=== PATIENT | female | born 1955 | race Caucasian/White ===

== ENCOUNTER 2016-09-12 07:00 | Inpatient (IN) | payer OTHER ==
[~2016-09-12] VITALS: Ht 155 cm; Wt 93.0 kg
[2016-10-11 05:39] LABS: HCT 34.1 % (37.0-47.0); HGB 10.7 g/dl (12.5-16.0); MCH 29.6 pg (25.0-31.0); MCHC 31.4 g/dL (32.0-36.0); MCV 94.5 fL (78.0-100.0); MPV 13.7 fL (6.0-9.5); RBC 3.61 M/uL (4.20-5.40); RDW 15.4 % (11.5-14.0); WBC 13.1 K/uL (4.0-10.5)
[2016-10-11 06:02] LABS: CREATININE 0.8 mg/dL (0.5-1.0); POTASSIUM 4.3 mmol/L (3.5-5.1)
[2016-10-12 05:17] LABS: HCT 31.7 % (37.0-47.0); MCH 29.9 pg (25.0-31.0); MCHC 31.5 g/dL (32.0-36.0); MCV 94.9 fL (78.0-100.0); MPV 13.8 fL (6.0-9.5); RBC 3.34 M/uL (4.20-5.40); RDW 15.3 % (11.5-14.0); WBC 11.1 K/uL (4.0-10.5)
[2016-10-12 05:37] LABS: CREATININE 0.8 mg/dL (0.5-1.0); POTASSIUM 4.3 mmol/L (3.5-5.1)
[2016-10-13 06:36] LABS: HGB 9.6 g/dl (12.5-16.0); MCH 29.4 pg (25.0-31.0); MCV 95.1 fL (78.0-100.0); MPV 14.3 fL (6.0-9.5); RBC 3.26 M/uL (4.20-5.40); RDW 15.2 % (11.5-14.0); WBC 12.3 K/uL (4.0-10.5)
[2016-10-13 07:04] LABS: CREATININE 0.6 mg/dL (0.5-1.0)
[2016-10-13] MEDS ORDERED: PERCOCET 5/3251 TAB PO (13:53)
[2016-10-13] MEDS ORDERED: XARELTO10 MG PO (13:54)
[2016-10-13] MEDS ORDERED: VITAMIN D5000 UNIT PO (13:54)
[2016-10-13] MEDS ORDERED: MICRO-K10 MEQ PO (13:55)
[2016-10-13] MEDS ORDERED: CELEXA 40MG TAB40 MG PO (13:55)
[2016-10-13] MEDS ORDERED: LASIX40 MG PO (13:55)
[2016-10-13] MEDS ORDERED: PRAVASTATIN SOD20 MG PO (13:56)
[2016-10-13] MEDS ORDERED: FIBER THERAPY PO (13:56)
[2016-10-13] MEDS ORDERED: NIACIN ER500 MG PO (13:56)
[2016-10-13] MEDS ORDERED: PROTONIX20 MG PO (13:56)
--- NOTE | 2016-10-13 14:45 | NUR ---
REVIEWED DISCHARGE INSTRUCTIONS, MEDICATIONS AND APPT INFORMATION WITH PT AND DAUGHTER XARELTO GIVEN, DRESSING GIVEN WITH DISCHARGE INSTRUCTIONS
== END 2016-10-13 14:09 | disposition home health service (06) | DRG 470 ==
LOC: FMS 07:00
PROVIDERS: ADMIT Legal Medicine
PROC: 8E0YXBZ Computer Assisted Procedure of Lower Extremity (ICD-10-PCS; 2016-10-10)
PROC: 0SRC0J9 Replacement of Right Knee Joint with Synthetic Substitute, Cemented, Open Approach (ICD-10-PCS; principal; 2016-10-10 13:00)
DX: M17.11 Unilateral primary osteoarthritis, right knee (principal); F32.9 Major depressive disorder, single episode, unspecified; M21.161 Varus deformity, not elsewhere classified, right knee; E78.5 Hyperlipidemia, unspecified; G47.30 Sleep apnea, unspecified; K21.9 Gastro-esophageal reflux disease without esophagitis; Z22.322 Carrier or suspected carrier of Methicillin resistant Staphylococcus aureus
CPT/HCPCS: 36415; 71010; 73560; 80048; 86850; 86900; 86901; 88305; 88311; 94010; 94640; 94760; 94762; 97110; 97116; 97162; 97165; 97530-GP; 97535; C1713; C1776; J0131; J0697; J1885; J2270; J2405; J2704; J2795; J3010